=== PATIENT | male | born 1935 | race Caucasian/White ===

== ENCOUNTER 2018-01-15 07:30 | Day surgery (SDC) | payer MEDICARE, BC ==
[2018-01-15] VITALS (10 sets, daily range): BP systolic 112–163; BP diastolic 62–79
[~2018-01-15] VITALS: Ht 177.8 cm; Wt 96.5 kg
[2018-01-15] MEDS ORDERED: LOSA25TA96 PO (08:07)
[2018-01-15] MEDS ORDERED: KRIL1CAP12 PO (08:07)
[2018-01-15] MEDS ORDERED: OCUVITE PO (08:07)
[2018-01-15] MEDS ORDERED: ERGO400T7 (08:07)
[2018-01-15] MEDS ORDERED: CYAN250014 (08:07)
[2018-01-15] MEDS ORDERED: NITR0.4T51 SL (08:07)
[2018-01-15] MEDS ORDERED: ASPI-1265 PO (08:07)
[2018-01-15] MEDS ORDERED: ATOR40TA PO (08:07)
[2018-01-15] MEDS ORDERED: sod bicarbonate 150mEq in D5W 1,150 ML IV ONE (08:10)
[2018-01-15] MEDS ORDERED: diphenhydrAMINE 25mg capsule PO PRN (08:10)
[2018-01-15 08:48] LABS: BASOPHILS % (AUTO) 0.4 % (0-1); EOSINOPHILS # (AUTO) 0.1 X10'3 (0-0.9); EOSINOPHILS % (AUTO) 2.4 % (0-6); HEMATOCRIT 41.6 % (42.0-52.0); LYMPHOCYTES # (AUTO) 1.3 X10'3 (1.1-4.8); LYMPHOCYTES % (AUTO) 21.9 % (21-51); MEAN CORPUSCULAR HGB CONC 33.7 % (33.0-36.5); MEAN CORPUSCULAR VOLUME 92.1 FL (78-98); MEAN PLATELET VOLUME 8.4 FL (7.4-10.4); MONOCYTES # (AUTO) 0.5 X10'3 (0-0.9); MONOCYTES % (AUTO) 7.9 % (2-12); NEUTROPHILS # (AUTO) 3.9 X10'3 (1.8-7.7); NEUTROPHILS % (AUTO) 67.4 % (42-75); PLATELET COUNT 185 X10'3 (140-440); RED BLOOD COUNT 4.52 X10'6 (4.70-6.10); RED CELL DISTRIBUTION WIDTH 14.1 % (11.5-14.5); WHITE BLOOD COUNT 5.8 X10'3 (4.5-11.0)
[2018-01-15 08:59] LABS: ALBUMIN 3.3 G/DL (3.4-5.0); ANION GAP 10 (8-16); BLOOD UREA NITROGEN 21 MG/DL (7-18); BUN/CREATININE RATIO 14.6 (5.4-32.0); CALCIUM 8.9 MG/DL (8.5-10.1); CHLORIDE 107 MMOL/L (99-107); CREATININE 1.44 MG/DL (0.60-1.10); GLUCOSE 103 MG/DL (70-104); MAGNESIUM 1.9 MG/DL (1.5-2.4); POTASSIUM 4.1 MMOL/L (3.5-5.1); SODIUM 143 MMOL/L (135-145); TOTAL CARBON DIOXIDE 26.4 MMOL/L (24-32); eGFR 47 ML/MIN
[2018-01-15 09:13] LABS: INR 1.1 INR; PROTHROMBIN TIME 10.7 SECONDS (9.0-12.0)
[2018-01-15] MEDS ORDERED: midazolam 2 mg/2 ml injection ONE (09:35)
[2018-01-15] MEDS ORDERED: fentaNYL/PF 50MCG/1 ML 2ML syringe ONE (09:35)
[2018-01-15] MEDS ORDERED: LIDOcaine 1% (10mg/ml)w/preservative injection 20ml MDV ONE (09:36)
[2018-01-15] MEDS ORDERED: iohexol 350MG/ML 100ml bottle IV ONE (09:36)
[2018-01-15] MEDS ORDERED: iohexol 350 MG/ML 50ML vial IV ONE ×3 (09:36→10:24)
== END 2018-01-15 16:00 | disposition home or self-care (01) ==
LOC: SSTAY O 07:30
PROVIDERS: ATTEND Internal Medicine Cardiovascular Disease
DX: I25.810 Atherosclerosis of coronary artery bypass graft(s) without angina pectoris (principal); I25.2 Old myocardial infarction; I10 Essential (primary) hypertension; E78.5 Hyperlipidemia, unspecified; N40.0 Benign prostatic hyperplasia without lower urinary tract symptoms; Z95.1 Presence of aortocoronary bypass graft; Z79.82 Long term (current) use of aspirin; Z86.73 Personal history of transient ischemic attack (TIA), and cerebral infarction without residual deficits; Z90.89 Acquired absence of other organs; Z86.79 Personal history of other diseases of the circulatory system; Z79.899 Other long term (current) drug therapy; Z98.890 Other specified postprocedural states; Z88.8 Allergy status to other drugs, medicaments and biological substances; Z82.49 Family history of ischemic heart disease and other diseases of the circulatory system
CPT/HCPCS: 36415; 80048; 83735; 85025; 85610; 93005; 93459; 99152; 99153; A6257; C1760; J1644; J2001; J2250; J3010; Q0163; Q9967; 93455; A4620; C1769; C1894

== ENCOUNTER 2018-04-02 07:49 | Day surgery (SDC) | payer MEDICARE, BC ==
[~2018-04-02] VITALS: Ht 177.8 cm; Wt 97.9 kg
[2018-04-02] VITALS (8 sets, daily range): BP systolic 126–159; BP diastolic 66–86
[~2018-04-02 07:49] MED LIST: ASPI-1265 PO; ATOR40TA PO; CYAN250014; ERGO400T7; KRIL1CAP12 PO; LOSA25TA96 PO; NITR0.4T51 SL; OCUVITE PO
[2018-04-02] MEDS ORDERED: CYAN1TAB41 PO (08:19)
[2018-04-02] MEDS ORDERED: CHOL5000 PO (08:19)
[2018-04-02] MEDS ORDERED: diphenhydrAMINE 25mg capsule PO PRN (08:25)
[2018-04-02] MEDS ORDERED: sod bicarbonate 150mEq in D5W 1,150 ML IV ONE (08:25)
[2018-04-02 08:49] LABS: BASOPHILS % (AUTO) 0.6 % (0-1); EOSINOPHILS # (AUTO) 0.1 X10'3 (0-0.9); EOSINOPHILS % (AUTO) 1.9 % (0-6); HEMATOCRIT 44.4 % (42.0-52.0); HEMOGLOBIN 14.5 g/dl (14.0-17.9); LYMPHOCYTES # (AUTO) 1.2 X10'3 (1.1-4.8); LYMPHOCYTES % (AUTO) 20.4 % (21-51); MEAN CORPUSCULAR HEMOGLOBIN 30.2 PG (27.0-31.0); MEAN CORPUSCULAR HGB CONC 32.6 % (33.0-36.5); MEAN CORPUSCULAR VOLUME 92.7 FL (78-98); MEAN PLATELET VOLUME 8.1 FL (7.4-10.4); MONOCYTES # (AUTO) 0.4 X10'3 (0-0.9); MONOCYTES % (AUTO) 7.7 % (2-12); NEUTROPHILS # (AUTO) 4.1 X10'3 (1.8-7.7); NEUTROPHILS % (AUTO) 69.4 % (42-75); PLATELET COUNT 243 X10'3 (140-440); RED BLOOD COUNT 4.79 X10'6 (4.70-6.10); WHITE BLOOD COUNT 5.8 X10'3 (4.5-11.0)
[2018-04-02 09:04] LABS: ALBUMIN 3.7 G/DL (3.4-5.0); ANION GAP 9 (8-16); BLOOD UREA NITROGEN 21 MG/DL (7-18); BUN/CREATININE RATIO 14.4 (5.4-32.0); CALCIUM 9.1 MG/DL (8.5-10.1); CHLORIDE 105 MMOL/L (99-107); CREATININE 1.46 MG/DL (0.60-1.10); GLUCOSE 108 MG/DL (70-104); MAGNESIUM 2.3 MG/DL (1.5-2.4); POTASSIUM 4.4 MMOL/L (3.5-5.1); SODIUM 141 MMOL/L (135-145); TOTAL CARBON DIOXIDE 27.5 MMOL/L (24-32); eGFR 46 ML/MIN
[2018-04-02 09:12] LABS: INR 1.1 INR; PROTHROMBIN TIME 10.7 SECONDS (9.0-12.0)
[2018-04-02] MEDS ORDERED: iohexol 350 MG/ML 50ML vial IV ONE (09:30)
[2018-04-02] MEDS ORDERED: iohexol 350MG/ML 100ml bottle IV ONE (09:30)
[2018-04-02] MEDS ORDERED: LIDOcaine 1% (10mg/ml)w/preservative injection 20ml MDV ONE (09:30)
[2018-04-02] MEDS ORDERED: proCHLORperazine 10 MG/2 ml inj ONE (09:34)
[2018-04-02] MEDS ORDERED: midazolam 2 mg/2 ml injection ONE (09:35)
[2018-04-02] MEDS ORDERED: fentaNYL/PF 50MCG/1 ML 2ML syringe ONE (09:35)
[2018-04-02] MEDS ORDERED: heparin 1,000unit/ml 10ml vial 10 ML ONE (10:17)
[2018-04-02] MEDS ORDERED: iohexol 350 MG/1 ML 200ml bottle ONE (10:17)
[2018-04-02] MEDS ORDERED: ticagrelor 90mg tablet ONE (10:36)
== END 2018-04-02 14:00 | disposition home or self-care (01) ==
LOC: SSTAY O 07:49
PROVIDERS: ATTEND Internal Medicine Cardiovascular Disease
DX: I25.118 Atherosclerotic heart disease of native coronary artery with other forms of angina pectoris (principal); I10 Essential (primary) hypertension; E78.5 Hyperlipidemia, unspecified; N40.0 Benign prostatic hyperplasia without lower urinary tract symptoms; I73.9 Peripheral vascular disease, unspecified; N19 Unspecified kidney failure; I25.2 Old myocardial infarction; Z72.89 Other problems related to lifestyle; Z91.048 Other nonmedicinal substance allergy status; Z98.890 Other specified postprocedural states; Z95.1 Presence of aortocoronary bypass graft; Z86.73 Personal history of transient ischemic attack (TIA), and cerebral infarction without residual deficits
CPT/HCPCS: 36415; 80048; 83735; 85025; 85610; 93005; 93459; 99152; 99153; A6257; C1874; C1887; C9600; J0780; J1644; J2001; J2250; J3010; Q0163; Q9967; A4620; C1725; C1760; C1769; C1894